=== PATIENT | male | born 1965 | race Hispanic/Latino ===

== ENCOUNTER 2024-12-02 09:26 | Emergency (ER) | payer OTHER, SELFPAY ==
--- NOTE | 2024-12-02 09:29 | ED.EYEPROB ---
HPI - Eye Problem General Chief complaint: Eye Problems Stated complaint: Right Eye Irritation Time Seen by Provider: 12/02/24 10:03 Source: patient and RN notes reviewed Mode of arrival: ambulatory Limitations: no limitations History of Present Illness HPI Narrative: 59 year old male presents with concern for right eye injury. He reports 2 days ago he thinks his dog scratched his eye while he was sleeping. He reports pain, eyelid swelling, discharge. He reports blurry vision when his eye is watering. Otherwise denies vision changes. chief complaint: eye pain Related Data Allergies Allergy/AdvReac Type Severity Reaction Status Date / Time No Known Allergies Allergy Verified 12/02/24 09:53 Review of Systems Review of Systems: CONSTITUTIONAL: Denies malaise, chills, sweats, or fever. EYES: Denies visual changes. Reports right eye redness, irritation, discharge. ENT: Denies rhinorrhea, congestion, sinus pain, otalgia or sore throat. SKIN: Denies rash or itching. NEUROLOGIC: Denies numbness, weakness, or headache. PSYCHIATRIC: Denies anxiety or depression. All systems reviewed & are unremarkable except as noted in HPI and below PMFSH Comments At time of signature, agree with nursing past medical, surgical, social and family history. There is no relevant family history pertinent to the presenting complaint Exam Narrative: GENERAL: Well-appearing, well-nourished, and in no acute distress. HEAD: Normocephalic, atraumatic. EYES: PERRLA, sclera clear, and EOMI. No nystagmus. Right sclera and conjunctivae injected with corneal injury noted. Right Upper eyelid slightly edematous, otherwise eyelids unremarkable, no periorbital edema noted ENT: Nares clear, turbinates pink, no rhinorrhea or epistaxis. Mucous membranes moist. NECK: Supple. CHEST: No respiratory distress. Speaks in full sentences. HEART: Regular rate and rhythm. SKIN: Warm, dry, no visible rash. NEURO: Alert and oriented x3. PSYCH: Normal mood and affect Course Course Emergency Course: Patient is aware of diagnosis, understands and agrees to treatment plan. Anticipatory guidance given. Patient agrees to follow-up as directed and is aware of reasons to seek care at the emergency department. Portions of this record may have been created with voice recognition software Level of Care: Express Care Visit Vital Signs Vital signs: Vital Signs Temperature 98.4 F 12/02/24 09:42 Pulse Rate 84 12/02/24 09:42 Respiratory Rate 16 12/02/24 09:42 Blood Pressure 149/81 H 12/02/24 09:42 Pulse Oximetry 98 12/02/24 09:42 Oxygen Delivery Room Air 12/02/24 09:42 Temperature 98.4 F 12/02/24 09:42 Pulse Rate 84 12/02/24 09:42 Respiratory Rate 16 12/02/24 09:42 Blood Pressure 149/81 H 12/02/24 09:42 Pulse Oximetry 98 12/02/24 09:42 Oxygen Delivery Room Air 12/02/24 09:42 Reviewed. Procedures Other Procedure Procedure 1: Other Procedure: Tetracaine 1 gtt instilled in right eye, fluorescein stain applied. Corneal injury noted upon morales lamp exam at approximately 7 o'clock in relation to the pupil. No foreign bodies or Naila sign noted. MDM - Eye Problem MDM Narrative Medical decision making narrative: Consideration of the following conditions may be warranted for the presenting problem, they are not final diagnoses: Bacterial conjunctivitis, allergic conjunctivitis, viral conjunctivitis, foreign body, blepharitis, chalazion, hordeolum, corneal abrasion, preseptal cellulitis, orbital cellulitis. No evidence of proptosis, ophthalmoplegia, vision loss, pain with eye movement. Exam findings show no acute concerns or changes; patient is non-toxic appearing and is in no distress. Patient is appropriate for outpatient treatment and follow-up. Patient reports he is calling his eye doctor for it appointment for further evaluation. Critical Care Time Critical Care Time Critical Care Time: No Discharge Plan Discharge Clinical Impression: Corneal injury Patient Disposition: Home Condition: Stable Instructions: Corneal Abrasion (ED) Additional Instructions: Please follow-up with ophthalmology, call for an appointment Use eye drops as directed Keep your eye shut and wear sunglasses or stay in low light to avoid light sensitivity. Do not touch or rub your eye or use a fabric patch You may take Tylenol or ibuprofen for pain If you have any urgent concerns please go to the emergency room Patient Language: Indonesian Prescriptions: New polymyxin B sulf-trimethoprim 10,000 unit- 1 mg/mL drops 1 drp RIGHT EYE Q3H 7 Days Qty: 10 0RF Rx Instructions: while awake; do not exceed 6 doses in 24 hours Follow-up/Referrals: UNKNOWN,DOCTOR [Non-Staff] Stand Alone Forms: Work/School Release IP Time of Disposition: 10:12
[2024-12-02 09:42] VITALS: BP 149/81; PULSE 84; RESP 16; TEMP 36.9; O2SAT 98
== END 2024-12-02 10:22 | disposition home or self-care (01) ==
PROVIDERS: Emergency Provider Nurse Practitioner
DX: S05.8X1A Other injuries of right eye and orbit, initial encounter (principal); X58.XXXA Exposure to other specified factors, initial encounter; I10 Essential (primary) hypertension; E78.00 Pure hypercholesterolemia, unspecified; E10.9 Type 1 diabetes mellitus without complications; C85.10 Unspecified B-cell lymphoma, unspecified site
CPT/HCPCS: 99203; A9270; G0463